=== PATIENT | male | born 1965 | race African-American/Black ===

== ENCOUNTER 2017-05-12 | Emergency (ER) | payer BC ==
[~2017-05-12] VITALS: Ht 170.2 cm; Wt 81.7 kg
[2017-05-12] MEDS ORDERED: LISINOPRIL10 MG PO (00:11)
[2017-05-12] MEDS ORDERED: ALLOPURINOL 10100 M1 PO (00:12)
[2017-05-12] MEDS ORDERED: MEN'S MULTI-VI1 EACH PO (00:12)
[2017-05-12] MEDS ORDERED: NORCO 5-325 TA1 EACH PO (00:42)
[2017-05-12] MEDS ORDERED: SENNA-DOCUSATE1 EACH PO (00:42)
[2017-05-12] MEDS ORDERED: PREDNISONE 20 M20 MG PO (00:42)
== END 2017-05-12 01:06 | disposition home or self-care (01) ==
LOC: ER
DX: M10.9 Gout, unspecified (principal); M79.671 Pain in right foot